=== PATIENT | female | born 1940 | race Caucasian/White ===

== ENCOUNTER 2018-10-16 09:29 | Outpatient (CLI) | payer MEDICARE, BC, SELFPAY ==
[2018-10-16 12:40] LABS: Abs Immature Grans 0.01 k/cumm (0.0-0.09); Absolute Basophil Count 0.02 k/cumm (0.0-0.2); Absolute Eosinophil Count 0.26 k/cumm (0.0-0.7); Absolute Lymphocyte Count 0.97 k/cumm (1.2-3.4); Absolute Monocyte Count 0.44 k/cumm (0.11-0.7); Absolute Neutrophil Count 2.56 k/cumm (1.2-6.7); Basophils % 0.5; Eosinophils % 6.1; HCT 39.2 % (36.0-46.0); HGB 12.8 g/dL (12.0-15.5); Immature Grans % 0.2; Lymphocytes % 22.8; Mean Corp. HGB Concentration 32.7 g/dL (32.0-36.0); Mean Corpuscular Hemoglobin 29.6 pg (27.0-33.0); Mean Corpuscular Volume 90.7 fL (80-95); Mean Platelet Volume 10.1 fL (8.0-11.0); Monocytes % 10.3; Neutrophils % 60.1; Platelet Count 238 x1000/uL (130-400); RBC 4.32 m/cumm (4.00-5.20); White Blood Cell Count 4.26 k/cumm (4.4-10.8)
[2018-10-16 12:47] LABS: ALT 16 U/L (12-78); AST 17 U/L (15-37); Albumin 3.6 g/dL (3.4-5.0); Alkaline Phosphatase 48 U/L (46-116); Anion Gap 6.6 mmol/L (3-11); BUN 17 mg/dL (7-18); Bilirubin, Total 0.5 mg/dL (0.2-1.0); CO2 31.4 mmol/L (21.0-32.0); CREATININE 0.83 mg/dL (0.55-1.02); Calcium 9.2 mg/dL (8.5-10.1); Chloride 104 mmol/L (98-107); Glucose 82 mg/dL (70-100); Potassium 4.3 mmol/L (3.5-5.1); Sodium 142 mmol/L (136-145)
== END 2018-10-16 09:49 ==
PROVIDERS: PCP Family Medicine; Visit Provider Emergency Medicine
DX: R10.9 Unspecified abdominal pain (principal); R30.0 Dysuria
CPT/HCPCS: 36415; 80053; 85025

== ENCOUNTER 2018-10-22 00:18 | Outpatient (CLI) | payer MEDICARE, BC, SELFPAY ==
--- NOTE | 2018-10-22 07:33 | DI.CT_ITS ---
SYMPTOM/DIAGNOSIS: LT FLANK PAIN, ABNL WT LOSS, R63.4, R10.[address]: CT scan of the abdomen and pelvis was performed following the uneventful administration of intravenous and oral contrast material. There are no priors for comparison. FINDINGS: There is scarring or atelectasis seen in the lung bases bilaterally. No focal consolidating infiltrates are seen. The liver is normal in size. No suspicious hepatic masses are seen. The portal, superior mesenteric and splenic veins are patent. The gallbladder is negative. There is no biliary ductal dilatation. The pancreas is unremarkable. The spleen is unremarkable. The adrenal glands are unremarkable. The kidneys show normal and symmetric enhancement. No evidence of a solid renal mass or obstruction. There is a tiny hypodense lesion seen in the right kidney. It is too small for further characterization but likely reflects a small cyst. There is no evidence of ureterolithiasis or hydronephrosis. The urinary bladder is intact. The reproductive organs are grossly unremarkable on this examination. The abdominal aorta shows mild atherosclerosis but no aneurysmal dilatation is present. No significant abdominal or pelvic adenopathy, pneumoperitoneum or ascites is present. The bowel shows no evidence of obstruction or inflammation. There is no evidence of an acute appendicitis. Degenerative changes are seen in the spine. There is an S type scoliosis of the thoracolumbar spine noted. No aggressive osseous lesions are identified. IMPRESSION: No evidence of an acute abdomen.
[2018-10-22] MEDS: Breeza Beverage 473 ML BTL PO ×2 (07:42→07:43)
[2018-10-22] MEDS: Omnipaque 350 MG/ML 50 ML BTL PO (07:43)
[2018-10-22] MEDS: Omnipaque 350 MG/ML 100 ML BTL IJ (09:02)
[2018-10-22] MEDS: Normal Saline Flush 10 ML SYR IVP (09:04)
== END 2018-10-22 00:38 ==
PROVIDERS: PCP Family Medicine; Visit Provider Emergency Medicine
DX: R10.32 Left lower quadrant pain (principal); R63.4 Abnormal weight loss
CPT/HCPCS: 74177; J3490; Q9967

== ENCOUNTER 2018-10-23 11:03 | Outpatient (REF) | payer MEDICARE, BC, SELFPAY ==
[2018-10-23 13:59] LABS: Bilirubin Moderate (Negative); Blood Moderate (Negative); Clarity Cloudy; Glucose Negative (Negative); Ketones 15 mg/dL (Negative); Leukocyte Esterase Negative (Negative); Nitrite Negative (Negative); Specific Gravity >= 1.030 (1.005-1.025); pH 5.5 (5-8)
[2018-10-23 14:19] LABS: C & S Indicated? Yes
== END 2018-10-23 11:23 ==
LOC: LBN 11:03
PROVIDERS: PCP Family Medicine; Visit Provider Emergency Medicine
DX: R10.9 Unspecified abdominal pain (principal); R30.0 Dysuria
CPT/HCPCS: 81003; 81015; 87086

== ENCOUNTER 2018-11-09 12:06 | Outpatient (CLI) | payer MEDICARE, BC, SELFPAY ==
[2018-11-09 12:43] LABS: Bilirubin Negative (Negative); Blood Moderate (Negative); Clarity Clear; Glucose Negative (Negative); Ketones Trace mg/dL (Negative); Leukocyte Esterase Negative (Negative); Nitrite Negative (Negative); Specific Gravity >= 1.030 (1.005-1.025); Urobilinogen 0.2 EU/dL (Up TO 0.2)
[2018-11-09 13:10] LABS: Bacteria Few HPF (Negative); C & S Indicated? No; Casts Negative LPF (Negative); Crystals Negative HPF (Negative); Epithelial Cells Few HPF (Negative); Mucus Moderate (Negative); WBC 0-2 HPF (0-5)
== END 2018-11-09 12:26 ==
PROVIDERS: PCP Family Medicine; Visit Provider Emergency Medicine
DX: R30.0 Dysuria (principal)
CPT/HCPCS: 81003; 81015

== ENCOUNTER → 2019-01-04 12:49 | Outpatient (BNVA) | payer MEDICARE, BC, SELFPAY | PROVIDERS: PCP Family Medicine; Referring Provider Emergency Medicine; Visit Provider Nurse Practitioner Gerontology | DX: R31.29 Other microscopic hematuria (principal) | CPT/HCPCS: 99204 ==

== ENCOUNTER 2019-03-18 06:13 | Day surgery (SDC) | payer MEDICARE, BC, SELFPAY ==
[2019-03-18 06:15] VITALS: BP 142/72; PULSE 71; RESP 18; TEMP 36.4; O2SAT 98
--- NOTE | 2019-03-18 06:44 | W.PM.HP.N ---
Date of service: 03/18/19 Time of Service: 06:44 Assessment and Plan (1) Microscopic hematuria: Current visit: No Status: Acute For cystoscopy with retrograde pyelograms to complete her hematuria work-up. If a bladder tumor is visible, we will be prepared to resect the lesion today. History of Present Illness Chief Complaint: Microscopic hematuria Narrative: This is a 78-year-old woman who is identified as having microscopic hematuria on urinalysis. She has never seen gross hematuria. She did have some flank discomfort, so she was evaluated with a CT of the abdomen and pelvis. There was a small hypodense lesion identified in the right kidney which was too small to characterize. The radiologist felt this likely was a small renal cyst. No solid masses were identified. No kidney stones are identified She presents now for cystoscopy with retrograde pyelograms to complete her hematuria work-up. Review of Systems Review of Systems No fevers or chills No vision change or dysphasia No diabetes or thyroid dysfunction No shortness of breath, cough or hemoptysis No chest pain or palpitations Hx GERD. No nausea, vomiting, hepatitis, ulcers, jaundice, diarrhea or constipation No seizures, strokes or peripheral neuropathy No bleeding disorders or anemia No gout PFSH Family History Mother Essential hypertension Heart disease Father Stroke Sister Essential hypertension Breast CA Brother Stroke Brother No problems noted. Brother Hyperlipidemia Grandfather No problems noted. Grandfather No problems noted. Grandmother Heart disease Grandmother TB (tuberculosis) Son Asthma Son No problems noted. Sister No problems noted. Social History Smoking/Tobacco Use Status: Former Tobacco Use Alcohol Intake: current Alcohol Intake frequency: a few times a month Drug use: Never Substance use type: does not use Details: Pt states quit smoking 1959' Do you feel safe at home: Yes Meds Home Medications Medication Instructions Recorded Confirmed Type mometasone [Nasonex] 1 spry NS DAILY #1 ea 06/04/17 03/18/19 Rx Allergies Allergy/AdvReac Type Severity Reaction Status Date / Time soy Allergy Unknown Verified 03/18/19 06:27 ANIMAL DANDER Allergy Unknown Uncoded 03/18/19 06:27 MOLDS AND SMUTS Allergy Unknown Uncoded 03/18/19 06:27 Exam Narrative Exam Narrative: She is in no current distress. She is cooperative. Vital signs are documented elsewhere Her chest wall motion is normal. She does not appear short of breath at rest Her lungs are clear on auscultation Cardiac exam shows a regular rate and rhythm Her abdomen is soft with no masses. There is no guarding or rebound tenderness There is no edema in the lower extremities She is awake, alert and oriented. Results Last Vital Signs Temp 36.4 C L 03/18/19 06:15 Pulse 71 03/18/19 06:15 Resp 18 03/18/19 06:15 BP 142/72 H 03/18/19 06:15 Pulse Ox 98 03/18/19 06:15
[2019-03-18] MEDS: Sulfameth/Trimeth DS TAB 1 TAB PO (06:46)
[2019-03-18] MEDS: Lactated Ringers 1,000 ML 80 ML IV (06:46)
--- NOTE | 2019-03-18 07:23 | W.PM.DSUDISC ---
Discharge Plan Disposition Patient Disposition: HOME Condition: Stable Discharge Details Reason For Visit: Microscopic hematuria Attending Provider: Damon King Primary Care Provider: Oneil Agrawal Home Meds and New Rx's Prescriptions: No Action mometasone [Nasonex] 17 GM spray,non-aerosol 1 spry NS DAILY Qty: 1 RF: 4 Discharge Instructions Additional Instructions: F/U yearly for urinalysis Activity:: Activity as Tolerated Shower/Bathe:: 24 hours Diet:: As Tolerated DS: Diagnosis Discharge Diagnosis (1) Microscopic hematuria: Status: Acute
[2019-03-18] MEDS: Omnipaque 300 MG/ML 50 ML BTL (07:47)
[2019-03-18] MEDS: Lidocaine 2% Jelly 11 ML SYR (07:47)
--- NOTE | 2019-03-18 08:05 | DI.RAD_ITS ---
SYMPTOM/DIAGNOSIS: HEMATURIA BILATERAL RETROGRADE: Fluoroscopy Time: 28.5 sec., 2.80 mGy. A bilateral retrograde study was carried out according to the usual protocol. The intrarenal collecting structures and visualized portions of the ureters appear unremarkable. Please see Dr. King's procedure report for further information.
[2019-03-18] MEDS: Phenazopyridine 200 MG TAB PO (08:33)
[2019-03-18 08:35] VITALS: BP 140/85; PULSE 68; RESP 16; TEMP 35; O2SAT 99
--- NOTE | 2019-03-18 11:37 | ROE_ITS ---
PREOPERATIVE DIAGNOSIS: Microscopic hematuria. POSTOPERATIVE DIAGNOSIS: Same. PROCEDURE: Cystoscopy with bilateral retrograde pyelogram. SURGEON: Damon King M.D. ANESTHESIA: General. COMPLICATIONS: None. ESTIMATED BLOOD LOSS: Minimal. FINDINGS: No visible bladder tumor. HISTORY: This is a 78 year old woman who was identified as having microscopic hematuria. Her urinal ysis showed 3-5 red cells per high power field. She underwent a CT scan which showed no evidence of kidney stones. There was a small lesion on the right kidney which is likely a cyst. No other abnor malities were seen. She presents for cystoscopy with retrograde pyelogram to complete her hematuria work-up. OPERATIVE REPORT: The patient was brought to the operating room on 03/18/19. After successful induc tion of general anesthesia, she was placed in the dorsal lithotomy position. Her genitalia was prepp ed and draped. 2% Xylocaine jelly was instilled into the urethra to act as a local anesthetic. A #22 [place] rigid cystoscope was passed through the urethra into the bladder. The bladder was inspected using both th e 30 and the 70 degree lens. Both ureteral orifices were identified. Each orifice was cannulated with a #6 [place] access catheter . A retrograde film was obtained by injecting Omnipaque through the access catheter under fluoroscop ic guidance. Both ureters and collecting systems were outlined and showed no visible filling defects. Both sides drained promptly on a 5-minute drainage film. The bladder showed no papillary or nodular lesions throughout. No active bleeding was seen. Based on this examination, there is no sign of significant uropathology. The bladder was emptied and the cystoscope was withdrawn. The current recommendation from the [employer] is a yearly urinalysis and a repe at hematuria work-up in 3-5 years if hematuria is found to be persistent.
== END 2019-03-18 08:52 | disposition home or self-care (01) ==
PROVIDERS: PCP Family Medicine; Visit Provider Urology
PROC: (CPT 52005; principal; 2019-03-18 07:30)
DX: R31.29 Other microscopic hematuria (principal); K21.9 Gastro-esophageal reflux disease without esophagitis
CPT/HCPCS: 52005; NC; 74420; Q9967

== ENCOUNTER 2021-03-25 10:13 | Emergency (ER) | payer MEDICARE, BC, SELFPAY ==
[2021-03-25 10:15] VITALS: BP 141/67; PULSE 74; RESP 16; TEMP 36.6; O2SAT 100
--- NOTE | 2021-03-25 10:19 | W.ED.GENAD ---
Discharge Plan Disposition Patient Disposition: HOME Condition: Stable Discharge Details Clinical Impression: Tick bite, Cellulitis Primary Care Provider: Oneil Agrawal ED Provider: Elijah Molina Home Meds and New Rx's Prescriptions: New doxycycline hyclate 100 mg capsule 100 mg PO BID 14 Days Qty: 28 RF: 0 Continued mometasone [Nasonex] 17 GM spray,non-aerosol 1 spry NS DAILY Qty: 1 RF: 4 epinephrine 0.3 mg/0.3 mL auto-injector RF: 0 Discharge Instructions Instructions: Cellulitis (ED), Tick Bite (ED) Additional Instructions: Tetanus status updated today. Tickborne panel drawn and pending. Will place you on doxycycline for tick bite, this would cover cellulitis or potential Lyme disease. I am placing you on a 14-day course however depending on how you are responding an additional 7 or 14 days it may be required. [id number] medication such as Tylenol as directed for discomfort and/or fever. Warm compresses every 2 hours for 20 minutes. Please watch for new or worsening symptoms and return to the ER for any concerns. Lastly, I would like you to reach out to your primary care provider tomorrow to discuss your ongoing symptoms and need for reevaluation before your antibiotic therapy is completed. Please be mindful that doxycycline can cause sensitivity to the sun injury may be inclined to have the sunburn more easily than usual. Be sure to cover your skin and wear sunblock. Discharge Data Discharge Date/Time-TO BE ENTERED AT DEPARTURE: 03/25/21 11:10 Medical Decision Making 80-year-old female presents with what she believes to be an infected tick bite. Clinically she appears well, nontoxic, afebrile, does not complain of any other joint pain. Centrally there is a scab, cannot rule out the presence of retained tick foreign body. No evidence of fornier's gangrene Using an 11 blade I gently scraped the scab away, able to see now to the base of the lesion, no foreign body present. We will treat with 14 days of doxycycline and obtain a tick panel. Although the rash is not necessarily consistent with erythema migrans, patient unsure of how long the tick was present, and doxycycline will cover both Lyme disease and/or cellulitis. Given she has been bitten in the past, she is agreeable to obtaining a tickborne. She does understand that with her tick bite on Friday, she may still test negative as she may have not developed antibodies thus far and could be retested in the next 4-6 weeks. Tickborne panel pending Medical Records Medical records reviewed: Yes I reviewed the patient's medical records. HPI General Mode of arrival: ambulatory. Date/Time Provider Initiated Documentation: 03/25/21 10:15. Limitations to Documentation: no limitations. Information obtained by: patient. HPI Narrative: This is a 80-year-old female with a past medical history of GERD, osteoarthritis, presenting to the ER for concerns of an infected tick bite. Patient states that she noticed a tick on her last Friday, unsure how long it is present. Tick was located just below her right buttocks. She removed the tick herself and subsequently was seen at [facility]. Given a single dose of doxycycline and discharged. She states since that time the area has become more red and is spreading slightly. She denies fever, joint pain, drainage from the area. Patient states over the years she has been bit by other ticks, she recalls another tick bite a few years ago, given a single dose of antibiotics at that time. Patient reports the current rash is warm, red, slightly painful. He did not take any medications for symptoms. Related Data Home Medications Medication Instructions Recorded Confirmed mometasone [Nasonex] 1 spry NS DAILY #1 ea 06/04/17 03/25/21 doxycycline hyclate 100 mg PO BID 14 Days #28 cap 03/25/21 epinephrine 03/25/21 03/25/21 Previous Rx's Medication Instructions Recorded mometasone [Nasonex] 1 spry NS DAILY #1 ea 06/04/17 doxycycline hyclate 100 mg PO BID 14 Days #28 cap 03/25/21 Allergies Allergy/AdvReac Type Severity Reaction Status Date / Time soy Allergy Unknown Verified 03/25/21 10:19 ANIMAL DANDER Allergy Unknown Uncoded 03/25/21 10:19 MOLDS AND SMUTS Allergy Unknown Uncoded 03/25/21 10:19 General Stated Complaint: Cellulitis GUILLERMO: 4 Review of Systems Constitutional Constitutional: Denies fever(s) and Denies weakness Cardiovascular Cardiovascular: Denies chest pain and Denies dyspnea Respiratory Respiratory: Denies dyspnea Musculoskeletal Musculoskeletal: Denies deformity, Denies arthralgias, Denies numbness, Denies stiffness and Denies tingling Integumentary/Breasts Skin/Breast: Reports erythema Neurologic Neurologic: Denies numbness, Denies tingling and Denies weakness [facility] Medical History Insomnia Migraine Surgical History Biopsy of breast lumpectomy. benign L submandibular gland excision Ligation of fallopian tube STAPES MOBILIZATION Tonsillectomy Family History Mother , heart failure at age 96. Essential hypertension Heart disease Father , Dementia at age 80. Stroke ? Sister Essential hypertension Breast cancer Brother Stroke Brother No problems noted. Brother Hyperlipidemia Grandfather No problems noted. Grandfather No problems noted. Grandmother Heart disease Grandmother TB (tuberculosis) Son Asthma Son No problems noted. Sister No problems noted. Social History Smoking/Tobacco Use Status: Former Tobacco Use Smoking risk assessment performed?: Yes Alcohol Intake: current Alcohol Intake frequency: a few times a month Drug use: Never Substance use type: does not use Details: Pt states quit smoking 1959' Do you feel safe at home: Yes Do you feel safe in your relationship?: Yes Exam Const General: cooperative, healthy appearing, comfortable and no acute distress Orientation: alert and awake HENAK Head: normal to inspection, normocephalic and atraumatic Eyes General: appearance normal, both eyes and all related structures Conjunctivae: conjunctivae normal Neck Neck: normal visual inspection, trachea midline and supple Resp Effort & Inspection: normal respiratory effort and able to speak in complete sentences Back/Spine/Pelvis Back: No back tenderness Skin General skin exam: erythema Full body images: 1. Macular erythema, slight warmth and discomfort. Centrally there is a scabbed lesion. No obvious signs of foreign body, induration, fluctuance, drainage, lymphangitic streaking. I do not appreciate any classic erythema migrans-like rash Neuro General: patient alert, patient awake, moves all extremities and no focal motor deficits Cognition: normal cognition Speech: speech normal Gait: normal gait Sensory Exam: no sensory deficits noted Extrem General: full ROM and capillary refill normal Psych Appearance: grossly normal Mental Status: mental status grossly normal Course Vital Signs Vital signs: Vital Signs Temperature 36.6 C 03/25/21 10:15 Pulse 74 03/25/21 10:15 Respiratory Rate 16 03/25/21 10:15 Blood Pressure 141/67 H 03/25/21 10:15 Pulse Oximetry 100 03/25/21 10:15 Temperature 36.6 C 03/25/21 10:15 Pulse 74 03/25/21 10:15 Respiratory Rate 16 03/25/21 10:15 Respiratory Effort Non-Labored 03/25/21 10:18 Blood Pressure 141/67 H 03/25/21 10:15 Blood Pressure Position Sitting 03/25/21 10:15 Pulse Oximetry 100 03/25/21 10:15 Oxygen Delivery Method Room Air 03/25/21 10:15 Oxygen Flow Rate 0 03/25/21 10:15 Pain Level 0 03/25/21 10:15
[2021-03-25 11:10] VITALS: BP 141/67; PULSE 74; RESP 16; TEMP 36.6; O2SAT 100
[2021-03-26 11:43] LABS: Lyme Ab w Rflx to Lyme Confirm Negative (Negative)
[2021-03-27 16:16] LABS: Anaplasma phagocytophilum Negative (Negative); B. miyamotoi PCR Negative (Negative); Babesia divergens/MO-1 Negative (Negative); Babesia duncani Negative (Negative); Babesia microti Negative (Negative); Ehrlichia chaffeensis Negative (Negative); Ehrlichia ewingii/canis Negative (Negative); Ehrlichia muris eauclairensis Negative (Negative)
== END 2021-03-25 11:10 | disposition home or self-care (01) ==
PROVIDERS: Emergency Provider Physician Assistant; PCP Family Medicine
DX: S70.361A Insect bite (nonvenomous), right thigh, initial encounter (principal); L03.115 Cellulitis of right lower limb; W57.XXXA Bitten or stung by nonvenomous insect and other nonvenomous arthropods, initial encounter
CPT/HCPCS: 87798; 99283; 86618

== ENCOUNTER 2021-05-18 02:46 | Outpatient (CLI) | payer MEDICARE, BC, SELFPAY ==
[2021-05-21 11:21] LABS: Lyme Ab w Rflx to Lyme Confirm Negative (Negative)
[2021-05-21 16:57] LABS: Anaplasma phagocytophilum Negative (Negative); B. miyamotoi PCR Negative (Negative); Babesia divergens/MO-1 Negative (Negative); Babesia duncani Negative (Negative); Babesia microti Negative (Negative); Ehrlichia chaffeensis Negative (Negative); Ehrlichia ewingii/canis Negative (Negative); Ehrlichia muris eauclairensis Negative (Negative)
== END 2021-05-18 02:47 | disposition home or self-care (01) ==
LOC: LBO 02:46
PROVIDERS: PCP Family Medicine; Visit Provider Physician Assistant
DX: S70.361D Insect bite (nonvenomous), right thigh, subsequent encounter (principal); W57.XXXD Bitten or stung by nonvenomous insect and other nonvenomous arthropods, subsequent encounter
CPT/HCPCS: 36415; 87798; 86618

== ENCOUNTER 2021-10-05 00:48 | Outpatient (CLI) | payer MEDICARE, BC, SELFPAY ==
--- NOTE | 2021-10-05 08:00 | DI.DEXA_ITS ---
Exam(s) XR DEXA BONE DENSITY W/WO RIVERA EXAM: XR DEXA BONE DENSITY W/WO RIVERA CLINICAL HISTORY: loss of height,MENOPAUSAL,N95.9 TECHNIQUE: COMPARISON: No exams were available for comparison FINDINGS: Lateral Spine Image: Unremarkable. No compression deformities identified. Left hip: Total T-Score: -1.7 Total Z-Score: 0.3 T- and Z-scores: Findings consistent with osteopenia. Lumbar Spine: Total T-Score: 0.0 Total Z-Score: 2.6 T- and Z-scores: Within normal limits. IMPRESSION: Osteopenia in the left hip.
== END 2021-10-05 01:08 ==
PROVIDERS: PCP Family Medicine; Visit Provider Family Medicine
DX: M85.88 Other specified disorders of bone density and structure, other site (principal); N95.8 Other specified menopausal and perimenopausal disorders; R29.890 Loss of height
CPT/HCPCS: 77080

== ENCOUNTER 2021-10-24 13:19 | Outpatient (REF) | payer MEDICARE, BC, SELFPAY ==
--- NOTE | 2021-10-24 11:55 | SKI_PTH ---
PATIENT: Nettie Walls LOC: GT U#:[id number] AGE/SX: 81/F ROOM: RE10/24/[address]: Nai Santos : 1940 BED: DIS: 10/24/2021 SPEC #: [id number] RECD: 10/25/21 12:52 STATUS: KATARZYNA REAnita #: [id number] ENOCH: 10/24/21 11:[address]: Nai Santos DEPT: Surgical Specimen RECD BY: Evelyn Ritter Tissues: 1 - SKIN BIOPSY(SHAVE/PUNCH) Procedures: SKIN LEVEL 4 SPECIAL STAIN 1 Comments: [id number]
== END 2021-10-24 13:20 | disposition home or self-care (01) ==
LOC: LBN 13:19
PROVIDERS: PCP Family Medicine; Visit Provider Family Medicine
DX: L85.9 Epidermal thickening, unspecified (principal); L91.8 Other hypertrophic disorders of the skin
CPT/HCPCS: 88305; 88312

== ENCOUNTER 2022-01-24 03:12 | Outpatient (CLI) | payer MEDICARE, BC, SELFPAY ==
[2022-01-24 13:46] LABS: Calculated LDL 167 mg/dL (<100); Cholesterol 263 mg/dL (<200); HDL Cholesterol 83 mg/dL (40-60); Triglyceride 69 mg/dL (<150)
== END 2022-01-24 03:13 | disposition home or self-care (01) ==
LOC: LOS 03:12
PROVIDERS: PCP Family Medicine; Visit Provider Family Medicine
DX: Z00.00 Encounter for general adult medical examination without abnormal findings (principal); Z13.220 Encounter for screening for lipoid disorders
CPT/HCPCS: 36415; 80061

== ENCOUNTER 2023-01-02 01:39 | Outpatient (CLI) | payer MEDICARE, BC, SELFPAY ==
[2023-01-03 22:04] LABS: Soybean IgE <0.10 kU/L (<0.70)
== END 2023-01-02 01:40 | disposition home or self-care (01) ==
PROVIDERS: PCP Family Medicine; Visit Provider Physician Assistant
DX: Z91.018 Allergy to other foods (principal); Z91.09 Other allergy status, other than to drugs and biological substances
CPT/HCPCS: 36415; 86003

== ENCOUNTER 2023-10-03 11:13 | Outpatient (CLI) | payer MEDICARE, BC, SELFPAY ==
--- NOTE | 2023-10-03 11:00 | RT.EKG_ITS ---
APPROVED REPORT Exam: Resting ECG Reason for Exam: palpitations Patient Location: O HR:68 bpm ECG Measurements Heart Rate 68 AXIS CA 160 P 78 QRSd 89 QRS 50 QT 397 T 67 QTc 423 Conclusion Sinus rhythm...normal P axis, V-rate 50- 99 Consider left ventricular hypertrophy...(S V1/V2+R V5/V6) >3.25mV I have reviewed and interpreted ECG and agree with software generated interpretation.
== END 2023-10-03 11:14 | disposition home or self-care (01) ==
LOC: DI.CM 11:14
PROVIDERS: PCP Family Medicine; Visit Provider Family Medicine
DX: R00.2 Palpitations (principal)
CPT/HCPCS: 93010

== ENCOUNTER 2023-10-03 11:42 | Outpatient (CLI) | payer MEDICARE, BC, SELFPAY ==
[2023-10-03 13:03] LABS: ALT 24 U/L (14-59); AST 23 U/L (15-37); Albumin 3.9 g/dL (3.4-5.0); Alkaline Phosphatase 47 U/L (46-116); Anion Gap 5.8 mmol/L (3-11); BUN 20 mg/dL (7-18); Bilirubin, Total 0.5 mg/dL (0.2-1.0); CO2 30.2 mmol/L (21.0-32.0); CREATININE 0.7 mg/dL (0.55-1.02); Calcium 9.4 mg/dL (8.5-10.1); Chloride 104 mmol/L (98-107); Estimated GFR 86.83 (mL/min/1.73m2); Glucose 92 mg/dL (74-106); Sodium 140 mmol/L (136-145); TSH (W/Ref FT4) 1.53 uIU/mL (0.36-3.74); Total Protein 7.7 g/dL (6.4-8.2)
== END 2023-10-03 11:43 | disposition home or self-care (01) ==
LOC: LOS 11:42
PROVIDERS: PCP Family Medicine; Referring Provider Family Medicine; Visit Provider Family Medicine
DX: Z00.00 Encounter for general adult medical examination without abnormal findings (principal); E03.9 Hypothyroidism, unspecified
CPT/HCPCS: 36415; 80053; 84443

== ENCOUNTER 2023-10-09 11:23 | Outpatient (RCR) | payer MEDICARE, BC, SELFPAY ==
--- NOTE | 2023-10-09 11:30 | HOLTER_ITS ---
APPROVED REPORT Conclusion This is a 48-hour Holter monitor ordered for palpitations Rhythm throughout is sinus. Average Heart rate is 77. Minimum was 57, maximum 124 There were very rare atrial and ventricular ectopic beats There was no atrial fibrillation, no high-grade AV block, no pauses greater than 3 seconds Patient symptoms were reported which did not reliably correspond to any dysrhythmia
== END 2023-10-30 23:59 | disposition home or self-care (01) ==
LOC: CARDOPNVT 11:23
PROVIDERS: PCP Family Medicine; Visit Provider Internal Medicine Cardiovascular Disease
DX: R00.1 Bradycardia, unspecified (principal)
CPT/HCPCS: 93227; 93225; 93226

== ENCOUNTER → 2023-10-23 00:42 | Outpatient (CLI) | payer MEDICARE, BC, SELFPAY ==
--- NOTE | 2023-10-23 08:39 | DI.US_ITS ---
APPROVED REPORT EXAM: Comprehensive 2D, Doppler, and color-flow Echocardiogram Patient Location: Out-Patient Slackman: Aylin Verdugo RDCS (AE) Other Information Study Quality: Good Conclusion Normal left ventricular wall thickness, chamber size, and systolic function. EF is 50-55% Normal right ventricular size and function Both atria are normal in size There is no structural or hemodynamically significant valvular disease Wall motion Left Ventricle The left ventricle is normal size. Left ventricular systolic function is borderline. There is normal left ventricular wall thickness. There is normal LV segmental wall motion. There is no ventricular se ptal defect visualized. LVEF is 50-55%. Right Ventricle The right ventricle is normal size. The right ventricular systolic function is normal. Atria The left atrium size is normal. The right atrium size is normal. The interatrial septum is intact wit h no evidence for an atrial septal defect. Aortic Valve The aortic valve is normal in structure. Aortic valve is trileaflet. There is no aortic valvular sten osis. No aortic regurgitation is present. Mitral Valve The mitral valve is normal in structure. No evidence of mitral valve stenosis. Trace mitral regurgita tion. Tricuspid Valve The tricuspid valve is normal in structure. There is no tricuspid valve stenosis. Trace tricuspid reg urgitation. Unable to assess PA pressure. Pulmonic Valve The pulmonary valve is normal in structure. There is no pulmonic valvular stenosis. There is no pulmo cony valvular regurgitation. Great Vessels The aortic root is normal in size. The ascending aorta is normal in size. Aortic arch is normal in ca liber. IVC is normal in size and collapses >50% with inspiration. Pericardium There is no pericardial effusion. 2D Dimensions IVSD d PLAX 0.82 cm F: 0.6-1.0 Ao Root d 2.68 cm F: 2.7 - 3.3 LVPW d PLAX 0.81 cm F: 0.6 - 1.0 Ao Asc Diam d 3.19 cm F: 2.3 - 3.1 LVID d PLAX 4.63 cm F: 3.8 - 5.2 LVDs 3.42 cm F: 2.2 - 3.5 LV EF Teichholz 51.2 % FS 26.08 % LV EDV (Teich) 98.8 mL LV ESV (Teich) 48.2 mL M-Mode TAPSE 2.70 cm (M/F) >1.7 Auto EF LV EDV A4C 68.2 mL LV EDV A2C 90.1 mL LV EDV BP 78.4 mL LV ESV A4C 33.9 mL LV ESV A2C 45.3 mL LV ESV BP 38.9 mL LVEF(%) A4C 50.3 % LVEF(%) A2C 49.7 % LVEF(%) BP 50.4 % LV SV A4C 34.3 ml LV SV A2C 44.8 ml LV SV BP 39.5 ml LV CO A4C 2.3 L/min LV CO A2C 3.2 L/min LV CO BP 2.8 L/min HR A4C 68.32 BPM HR A2C 70.59 BPM LV EDV Index (BP) LV Strain Long Pk Overal Avg (s) 17.24 LA Volume LA Length A4C 4.3 cm LA Length A2C 4.6 cm LA Area A4C s 15.01 cm2 LA Area A2C s 15.45 cm2 LA Vol A4C A-L 44.86 mL LA Vol A2C A-L 44.34 mL LA Vol Biplane A-L 46.2 mL LA Vol/BSA A4C A-L LA Vol/BSA A2C A-L LA Vol/BSA BP A-L 27.7 mL/m2 LA Vol A4C MOD 43.1 mL LA Vol A2C MOD 40.4 mL LA Vol BP MOD 43.0 mL RA Volume RA Area A4C 12.0 cm2 RA ESV A4C (A-L) 24.5mL RA Vol/BSA A4C A-L RA Length A4C 5.0 cm RA ESV A4C (MOD) 23.8mL LV Diastology MV E' medial 0.062 (>0.07 m/s) MV E Vmax 0.62 (0.4-1.3 m/s) MV E/E' MED 10.01 (<14) MV A Vmax 0.80 (0.4-1.3 m/s) MV E' lateral 0.067 (>0.1 m/s) E/A Ratio 0.8 MV E/E' LAT 9.21 (<14) MV E' Average 0.064 m/s MV E/E'(average) 9.59 Aortic Valve AoV Vmax 1.17 m/s LVOT Vmax 0.81 m/s AoV Peak Grad 5.5 mmHg LVOT Peak Grad 2.6 mmHg AoV Area (Vmax) 2.12 cm2 LVOT VTI 0.180 m AoV VTI 0.295 m LVOT Mean Grad 1.4 mmHg AoV Mean Kavon. 0.85 m/s LVOT SV 55.16 mL AoV Mean Grad 3.3 mmHg LVOT Diam s 1.95 cm AoV Area (VTI) 1.87 cm2 Velocity Ratio 0.69 Mitral Valve MV DT 267 (160-240 msec) MV Vmax TIPS 0.82 m/s MV Mean Grad 0.9 (<2mmHg) MV VTI 0.211 m Pulmonary Valve PV Vmax 1.15 (0.5-1.5 m/s) RVOT Vmax 0.66 m/s PV Peak Grad 5.3 mmHg RVOT Peak Gr. 1.7 mmHg PV Mean Kavon 0.74 m/s RVOT VTI 0.166 m PV Mean Grad 2.6 mmHg RVOT Mean Gr. 0.9 mmHg Tricuspid Valve RA Pressure 3.00 mmHg TV S' 0.13 m/s
== END ==
PROVIDERS: PCP Family Medicine; Visit Provider Family Medicine
DX: R94.31 Abnormal electrocardiogram [ECG] [EKG] (principal)
CPT/HCPCS: 93306

== ENCOUNTER 2024-02-05 14:54 | Outpatient (CLI) | payer MEDICARE, BC, SELFPAY ==
--- NOTE | 2024-02-05 13:45 | DI.RAD_ITS ---
Exam(s) XR KNEE RT 3V AP,LAT,PATRICK XR KNEE LT 3V AP,LAT,PATRICK XR STANDING ALIGNMENT EXAM: XR STANDING ALIGNMENT and bilateral three view knees CLINICAL HISTORY: eval hans knee pain and valgus deformity. TECHNIQUE: 2D digital imaging was performed. Nine images were obtained. COMPARISON: CR KNEES BILAT AP STANDING LATS from 12/02/2012 FINDINGS: BONES: The hips are well maintained. In the right knee, there is moderately severe narrowing of the lateral femoral tibial joint. There osteophytes in the lateral femoral tibial patellofemoral joints. There is a small joint effusion. There is marked narrowing of the lateral patellofemoral joint. I n the left knee, there is mild narrowing of the medial femoral tibial joint there is an enthesophyte at the anterior patella. There is a small spur at the posterior patella. There is a small joint eff usion present. The ankles are well maintained.There is no significant leg length discrepancy. SOFT TISSUE: Normal. IMPRESSION: Moderately severe osteoarthritis of the right knee and mild osteoarthritis of the left knee. DATA REPOSITORY: RADIATION DOSE DELIVERED:
== END 2024-02-05 14:55 | disposition home or self-care (01) ==
LOC: DIORS 14:54
PROVIDERS: PCP Family Medicine; Referring Provider Family Medicine; Visit Provider Student in an Organized Health Care Education/Training Program
DX: M17.0 Bilateral primary osteoarthritis of knee; M76.31 Iliotibial band syndrome, right leg; M21.062 Valgus deformity, not elsewhere classified, left knee
CPT/HCPCS: 20610; 73562; 99215; J1010; 77073

== ENCOUNTER → 2024-04-29 13:25 | Outpatient (BNVA) | payer MEDICARE, BC, SELFPAY | PROVIDERS: PCP Family Medicine; Visit Provider Student in an Organized Health Care Education/Training Program | DX: M17.11 Unilateral primary osteoarthritis, right knee (principal); M17.12 Unilateral primary osteoarthritis, left knee; M21.061 Valgus deformity, not elsewhere classified, right knee | CPT/HCPCS: 99213 ==

== ENCOUNTER → 2024-05-24 14:13 | Outpatient (BNVA) | payer MEDICARE, BC, SELFPAY | PROVIDERS: PCP Family Medicine; Referring Provider Family Medicine | DX: M17.11 Unilateral primary osteoarthritis, right knee (principal); M17.12 Unilateral primary osteoarthritis, left knee | CPT/HCPCS: 20610; J1010 ==

== ENCOUNTER → 2024-11-03 10:03 | Outpatient (BNVA) | payer MEDICARE, BC, SELFPAY | PROVIDERS: PCP Family Medicine; Referring Provider Family Medicine | DX: M17.11 Unilateral primary osteoarthritis, right knee (principal); M17.12 Unilateral primary osteoarthritis, left knee | CPT/HCPCS: 20610; 99213; J1010 ==

== ENCOUNTER 2024-11-24 10:43 | Outpatient (CLI) | payer MEDICARE, BC, SELFPAY ==
[2024-11-24 12:39] LABS: Bilirubin Negative (Negative); Blood Small (Negative); Clarity Clear (Clear); Glucose Negative (Negative); Ketones Trace mg/dL (Negative); Leukocyte Esterase Negative (Negative); Nitrite Negative (Negative); Specific Gravity 1.025 (1.005-1.025); Urobilinogen 0.2 mg/dL (Up to 0.2)
[2024-11-24 12:40] LABS: Anion Gap 7.1 mmol/L (3-11); BUN 16 mg/dL (7-18); CO2 31.9 mmol/L (21.0-32.0); CREATININE 0.8 mg/dL (0.55-1.02); Calcium 9.5 mg/dL (8.5-10.1); Calculated LDL 136 mg/dL (<100); Chloride 105 mmol/L (98-107); Cholesterol 228 mg/dL (<200); Estimated GFR 73.52 (mL/min/1.73m2); Glucose 87 mg/dL (74-106); HDL Cholesterol 74 mg/dL (>or=50); Sodium 144 mmol/L (136-145); Triglyceride 91 mg/dL (<150)
[2024-11-24 12:56] LABS: Bacteria Negative HPF (Negative); Crystals Few Calcium Oxalate HPF (Negative); Epithelial Cells Rare HPF (Negative); Mucus Negative (Negative); WBC Negative HPF (0-5)
[2024-11-24 12:57] LABS: C & S Indicated? No; Casts 0-2 Hyaline LPF (Negative)
== END 2024-11-24 10:44 | disposition home or self-care (01) ==
PROVIDERS: PCP Family Medicine; Referring Provider Family Medicine; Visit Provider Family Medicine
DX: I10 Essential (primary) hypertension (principal); R30.0 Dysuria; F51.04 Psychophysiologic insomnia
CPT/HCPCS: 36415; 80048; 80061; 81003; 81015

== ENCOUNTER → 2024-11-25 13:29 | Outpatient (BNVA) | payer MEDICARE, BC, SELFPAY | PROVIDERS: PCP Family Medicine; Referring Provider Family Medicine; Visit Provider Physical Therapy Assistant | DX: Z12.11 Encounter for screening for malignant neoplasm of colon (principal); K92.1 Melena ==

== ENCOUNTER 2024-12-14 11:37 | Day surgery (SDC) | payer MEDICARE, BC, SELFPAY ==
[2024-12-14 11:53] VITALS: BP 154/64; PULSE 80; RESP 16; TEMP 36; O2SAT 98
[2024-12-14] MEDS: Lactated Ringers 1,000 ML 80 ML IV (12:10)
--- NOTE | 2024-12-14 12:46 | W.ANESPRE ---
General Info Date of Service Date Performed: 12/14/24 Height: 5 ft 6 in Weight: 59.6 kg Body Mass Index (BMI): 21.2 Surgical Procedure: Operation Date: 12/14/24 12:05 Proposed Procedure Side Surgeon harrison Grissom MD Meds Allergies and Home Medications Allergies Allergy/AdvReac Type Severity Reaction Status Date / Time soy Allergy Unknown Other (See Verified 12/14/24 12:00 Comment) ANIMAL DANDER Allergy Unknown Other (See Uncoded 12/14/24 12:00 Comment) MOLDS AND SMUTS Allergy Unknown Other (See Uncoded 12/14/24 12:00 Comment) trees Allergy Other (See Uncoded 12/14/24 12:00 Comment) Home Medication ?Medication ?Instructions ?Recorded epinephrine 0.3 mg/0.3 mL 0.3 mg IM DIRECTED 03/25/21 injection, auto-injector tetrahydrozoline [Eye Drops ophthalmic (eye) 12/17/22 (tetrahydrozoline)] mometasone 50 mcg/actuation nasal 2 spray intranasal DAILY 3 months 02/02/24 spray (Nasonex 24hr Allergy) #51 grams hydrochlorothiazide 12.5 mg tablet 6.25 mg (1/2 x 12.5 mg) PO DAILY 11/24/24 #30 tabs bisacodyl 5 mg tablet,delayed 5 mg PO ONCE Colonoscopy Bowel 12/09/24 release Prep #4 tabs polyethylene glycol 3350 17 238 g PO ONCE #238 grams 12/09/24 gram/dose oral powder Current Visit Medications: Current Medications Generic Name Dose Route Start Last Admin Trade Name Freq PRN Reason Stop Dose Admin Ringer's Solution 1,000 mls @ 80 mls/hr 12/14/24 06:00 12/14/24 12:10 IV 12/14/24 23:59 80 mls/hr INFUSION FRANDY Administration IV Miscellaneous Supplies 1 each 12/14/24 06:00 Iv Access IV 12/14/24 23:59 DIRECTED FRANDY Sodium Chloride 0 ml 12/14/24 06:00 Normal Saline Flush 10 Ml Syr IV 12/14/24 23:59 PRN PRN Sodium Chloride 0 ml 12/14/24 06:00 Normal Saline 10 Ml Vial IJ 12/14/24 23:59 DIRECTED PRN Sterile Water 0 ml 12/14/24 06:00 Water,Injection,Sterile 10 Ml Vial IJ 12/14/24 23:59 DIRECTED PRN PFSH Active Problems Active Problems: Problem Status Onset Code Essential hypertension Acute ~10/2024 I10 Hematochezia Acute ~07/2024 K92.1 Bilateral primary osteoarthritis of knee Acute M17.0 Genu valgum Acute M21.069 Abnormal electrocardiogram [ECG] [EKG] Chronic R94.31 Actinic keratosis Chronic 01/05/13 L57.0 Low back pain Chronic M54.5 Chronic allergic rhinitis Acute J30.9 Chronic insomnia Acute F51.04 Osteopenia of left hip Acute ~10/05/21 M85.852 Sensorineural hearing loss, bilateral Acute H90.3 Mild obstructive sleep apnea Chronic ~2016 G47.33 Medical History Medical History Osteoarthritis (03/12/13) RIGHT KNEE (SEE SCANNED NOTE) Microscopic hematuria workup negative with urology Scoliosis Gastroesophageal reflux disease with esophagitis (09/08/12) 08/09 EGD Migraine Surgical History Surgical History History of bilateral ligation of fallopian tubes History of excision of mass Status post tonsillectomy Joint pain (11/30/12) right thumb CMC arthritis; osteophytes STAPES MOBILIZATION L submandibular gland excision Biopsy of breast lumpectomy. benign Tobacco Smoking/Tobacco Use Status: Former Tobacco Use Passive smoking exposure: No Second hand exposure: Yes Alcohol Alcohol Intake: current Alcohol intake frequency: a few times a month Alcohol type: wine Substance Use Substance use: Never Substance use type: does not use Vital Signs and Lab Results Vital Signs Most Recent Vital Signs in EMR: Most Recent Vital Signs Temp Pulse Resp BP Pulse Ox 36 C L 80 16 154/64 H 98 12/14/24 11:53 12/14/24 11:53 12/14/24 11:53 12/14/24 11:53 12/14/24 11:53 Lab Results Blood Type / Crossmatch: No Data to Display Complete Blood Count: No Data to Display Complete Metabolic Panel: Sodium 144 mmol/L (136-145) 11/24/24 10:53 Potassium 4.0 mmol/L (3.5-5.1) 11/24/24 10:53 Chloride 105 mmol/L (98-107) 11/24/24 10:53 Carbon Dioxide 31.9 mmol/L (21.0-32.0) 11/24/24 10:53 BUN 16 mg/dL (7-18) 11/24/24 10:53 Creatinine 0.8 mg/dL (0.55-1.02) 11/24/24 10:53 Est GFR (CKD-EPI 2020) 73.52 (mL/min/1.73m2) 11/24/24 10:53 Calcium 9.5 mg/dL (8.5-10.1) 11/24/24 10:53 Glucose 87 mg/dL (74-106) 11/24/24 10:53 Liver Function Panel: No Data to Display Coagulation Panel: No Data to Display Cardiac Panel: No Data to Display Arterial Blood Gas: No Data to Display Venous Blood Gas: No Data to Display Pancreas Panel: No Data to Display Thyroid Panel: No Data to Display Infectious Disease: No Data to Display Blood Cultures: No Data to Display Toxicology Panel: No Data to Display Anesthesia Assessment and Plan Anesthesia History Personal History: No History of Anesthesia Complications Family History: No Family History of Anesthesia Complications Exercise Tolerance Exercise Tolerance: Metabolic Equivalents>4 Pertinent Negatives Pertinent Negatives: No Major Cardiovascular Symptoms or Complaints and No Major Pulmonary Symptoms or Complaints Cardiac & Pulmonary Exam Cardiac Exam: Normal S1/S2 Heart Sounds Pulmonary Exam: Clear Bilateral Breath Sounds Implantable Cardiac Device Does patient have a Pacemaker or an ICD?: No Airway Exam Known Difficult Airway: No Mallampati Class: 2 Mouth Opening: Normal (> 3cm) Thyromental Distance: Greater than 3 cm Neck Range of Motion: Full ROM Neck Circumference: Normal Teeth Condition: Normal Dentition ASA Classification ASA Score: ASA 2 Emergency Case?: No NPO Status NPO Status: NPO Clears >2 hours, Solids >8 hours Anesthesia Plan Resuscitation Status: Full Code Anesthesia Technique: General Anesthesia Airway Planned: Natural Airway Monitors Used: Standard Monitors
--- NOTE | 2024-12-14 13:06 | W.COLOREPORT ---
Date of service: 12/14/24 Time of Service: 13:06 Colonoscopy Report Procedure Description: PROCEDURES PERFORMED: 1. Colonoscopy with cold forceps biopsies PREOPERATIVE DIAGNOSIS: Painless rectal bleeding POSTOPERATIVE DIAGNOSIS: Mild sigmoid diverticulosis SURGEON: Malissa Grissom MD INDICATION FOR PROCEDURE: the patient is an 84 -year-old woman with a significant family history of colon cancer. She had a colonoscopy more than 10 years ago that she wears/recalls was normal. She has been seeing some blood mixed in with her stools for quite some time now. There is no pain. Her bowel habits are otherwise normal and she does not notice a change in stool caliber. FINDINGS: Normal?appearing terminal ileum. Biopsies were taken here to establish and rule out IBD (not suspected). There was no visible evidence of upstream bleeding in the terminal ileum. Minimal/mild, scattered diverticular changes isolated to the sigmoid colon. No polyps. No inflammation. No obvious or significant hemorrhoidal disease. A couple of benign?appearing epithelial tags at the dentate line but no hemorrhoid disease. SURVEILLANCE interval/FOLLOW-UP: Unclear where the bleeding is coming from. Doubtful from anything in the colon based on today's findings. A foregut etiology is possible. Other things like a Meckel's diverticulum(w/ associated ileal ulcer) is also possible. SPECIMENS: Terminal ileum EBL: Minimal COMPLICATIONS: None QUALITY of prep: Excellent Procedure in detail: The patient gave written consent and was in agreement with the indications, the potential risks as well as the benefits of the procedure. They were taken to the endoscopy suite and laid in the left lateral decubitus position. A timeout was performed and anesthesia was administered which was tolerated well. I started the procedure. Digital rectal and visual examination was performed and grossly within normal limits. A well-lubricated flexible colonoscope was then introduced and passed without any notable difficulty all the way to the cecum identified by the ileocecal valve and the appendiceal orifice. The terminal ileum was deeply intubated and appeared normal visually. No evidence of bleeding upstream. The scope was then slowly withdrawn with the above-noted findings. The patient tolerated the procedure well and was taken to the PACU in hemodynamically stable condition.
--- NOTE | 2024-12-14 13:07 | W.PM.DSUDISC ---
Date of service: 12/14/24 Discharge Plan Disposition Patient Disposition: Home Condition: Good Discharge Details Attending Provider: Yinka Grissom Primary Care Provider: Nai Santos Home Meds and New Rx's Prescriptions: No Action hydrochlorothiazide 12.5 mg tablet 6.25 mg PO DAILY Qty: 30 3RF tetrahydrozoline [Eye Drops (tetrahydrozoline)] ophthalmic (eye) mometasone [Nasonex 24hr Allergy] 50 mcg/actuation spray,non-aerosol 2 spray intranasal DAILY 90 Days Qty: 51 4RF Rx Instructions: administer into each nostril bisacodyl 5 mg tablet,delayed release (DR/EC) 5 mg PO ONCE Qty: 4 0RF Rx Instructions: Per Colonoscopy bowel prep instructions polyethylene glycol 3350 17 gram/dose powder 238 g PO ONCE Qty: 238 0RF Rx Instructions: For Colonoscopy bowel prep, as directed by office epinephrine 0.3 mg/0.3 mL auto-injector 0.3 mg IM DIRECTED Patient Comments: USE DIRECTED NEEDED FOR 1 DOSE Discharge Instructions Additional Instructions: FINDINGS: Overall, nothing was found as being the obvious source of your bleeding. You did not have any significant hemorrhoid disease. There is no inflammation anywhere. You can be confident you do not have colorectal cancer. The bleeding COULD be coming from upstream in your small intestine or even your stomach. If you continue to see blood, you can consider having an upper endoscopy (EGD) done and you can also consider having a capsule endoscopy performed as well. You can follow-up with your PCP as needed. Overall, you probably do not need to have another colonoscopy. Stand Alone Forms: Anesthesia Discharge Inst., Colonoscopy Post Instructions, Rosa Ryan (DSU) Activity:: Activity as Tolerated Diet:: As Tolerated Discharge Orders Discharge Orders: Discharge Order (Routine); Ordered 12/14/24 Ordered By: Yinka Grissom
[2024-12-14 13:11] VITALS: BMI 21.2
--- NOTE | 2024-12-14 13:35 | BOWEL_PTH ---
PATIENT: Nettie Walls LOC: [facility] U#:[id number] AGE/SX: 84/F ROOM: RE12/14/[address]: Yinka Grissom : 1940 BED: DIS: 12/14/2024 SPEC #: [id number] RECD: 12/14/24 17:38 STATUS: KATARZYNA RE #: [id number] ENOCH: 12/14/24 13:[address]: Yinka Grissom DEPT: Surgical Specimen RECD BY: Evelyn Ritter ENTERED: 12/14/24 17:38 SP TYPE: Bowel OTHR DR: Nai Santos Tissues: 1 - BIOPSY BOWEL Procedures: GROSS AND MICRO LEVEL 4 Comments: [id number]
[2024-12-14 13:49] VITALS: BP 143/72; PULSE 80; RESP 18; TEMP 35.7; O2SAT 98
[2024-12-14 14:19] VITALS: BP 155/77; PULSE 90; RESP 16; TEMP 36.4; O2SAT 96
--- NOTE | 2024-12-14 14:33 | W.ANESPOSTOP ---
Postoperative Evaluation Date, Time and Location Date Performed: 12/14/24 Time Performed: 13:49 Patient Location: Day Surgery Unit Vital Signs Most Recent Imported Vital Signs: Most Recent Vital Signs Temp Pulse Resp BP Pulse Ox 36.4 C L 90 16 155/77 H 96 12/14/24 14:19 12/14/24 14:19 12/14/24 14:19 12/14/24 14:19 12/14/24 14:19 Pain Score Most Recent Pain Score: Most Recent Pain Score Pain Level 0 12/14/24 14:19 Assessment Mental Status: Awake (Alert & Oriented to Patient Baseline) Airway and Respiratory Function: Patent airway with normal (patient baseline) respiratory exam Cardiovascular Function: Hemodynamically Stable Hydration Status: Adequately Hydrated Nausea & Vomiting: No Nausea or Vomiting Pain: Pt. Denies Any Pain Peripheral Nerve Block: Patient did not receive a nerve block
== END 2024-12-14 14:25 | disposition home or self-care (01) ==
LOC: SUR 11:38
PROVIDERS: PCP Family Medicine; Visit Provider Student in an Organized Health Care Education/Training Program
PROC: 0DJD8ZZ Inspection of Lower Intestinal Tract, Via Natural or Artificial Opening Endoscopic (ICD-10-PCS; CPT 45378; principal; 2024-12-14 12:00)
DX: Z12.11 Encounter for screening for malignant neoplasm of colon (principal); K92.1 Melena; I10 Essential (primary) hypertension; G47.33 Obstructive sleep apnea (adult) (pediatric); K57.30 Diverticulosis of large intestine without perforation or abscess without bleeding
CPT/HCPCS: 45380; 88305; J2003; J2704

== ENCOUNTER 2025-01-06 00:45 | Outpatient (CLI) | payer MEDICARE, BC, SELFPAY ==
--- NOTE | 2025-01-06 08:15 | DI.DEXA_ITS ---
Exam(s) XR DEXA BONE DENSITY W/WO RIVERA EXAM: XR DEXA BONE DENSITY W/WO RIVERA CLINICAL HISTORY: screening for osteoporosis, menopausal disorder,n95.9 TECHNIQUE: Routine DEXA evaluation of the lumbar spine, hip, or forearm. COMPARISON: CR XR DEXA BONE DENSITY W/WO RIVERA from 10/05/2021 FINDINGS: Performed on a HoloPixalate unit. Lateral image: Slight indentation of superior endplate of L1 is unchanged from 202. Lumbar Spine total T-score: 0.5. Previous reading in 2021 was 0.0. Both are normal range. Hip total T-score:-1.5. Previous reading in 2021 was -1.7. Both readings are in the osteopenia rang e. Independent reading at the level of the femoral neck yields T-score of -1.9. Prior reading was -2.3 . Both readings are in osteopenia range. Forearm total T-score: -3.0. Prior reading was -2.7. Both are in osteoporosis range. IMPRESSION: Bone mineral density measures in the osteopenia range for the hip and spine. Fracture risk is modera te. Bone mineral density measures in the osteoporosis range for the wrist. Fracture risk is high at this level. Note: Any spine fracture indicates 5x risk for subsequent spine fracture and 2x risk for subsequent h ip fracture. World Health Organization criteria for BMD interpretation classify patients: Normal...... T- Score at or above -1.0 Osteopenic... T- Score between -1.0 and -2.5 Osteoporosis... T-Score at or below -2.5
== END 2025-01-06 01:05 ==
LOC: DI 00:45
PROVIDERS: PCP Family Medicine; Visit Provider Family Medicine
DX: N95.9 Unspecified menopausal and perimenopausal disorder (principal); Z13.820 Encounter for screening for osteoporosis; M85.89 Other specified disorders of bone density and structure, multiple sites
CPT/HCPCS: 77080

== ENCOUNTER → 2025-06-30 09:37 | Outpatient (BNVA) | payer MEDICARE, BC, SELFPAY | PROVIDERS: PCP Family Medicine; Referring Provider Family Medicine; Visit Provider Physician Assistant | DX: M17.0 Bilateral primary osteoarthritis of knee (principal) | CPT/HCPCS: 20610; J1010 ==